=== PATIENT | male | born 1935 | race Caucasian/White ===

== ENCOUNTER 2022-06-21 05:06 | Inpatient (IN) | payer MEDICARE ==
[~2022-06-21] VITALS: Ht 180.3 cm; Wt 70.8 kg
[~2022-06-21 05:06] MED LIST: ASPIRIN EC81 MG PO; ATORVASTATIN CA20 MG PO; GLUCOPHAGE1000 MG PO; GLUCOTROL 10 MG10 MG PO; HUMALOG 10100 UNITS/ SC; KEPPRA 100100 MG/1 M PO; LANTUS INS100 UTS/M1 SQ; LANTUS100 UNIT/1 SC; LANTUS100 UNIT/1 SQ; LOPRESSOR 25 MG25 MG PO; MAGOX 400400 MG PO; MIRALAX 119 GR119 GM PO; NEURONTIN 100100 MG PO; NORCO 7.5-3251 EACH PO; NOVOLOG100 UNIT/1 SC; PHENERGAN 12.12.5 M1 PO; PLAVIX 75 MG TA75 MG PO; PROTONIX40 M1 PO; XARELTO10 MG PO; XARELTO15 PACK PO
[2022-06-21 05:45] LABS: RED BLOOD COUNT 2.15 M/UL (4.20-5.50); WHITE BLOOD COUNT 4.7 K/UL (4.5-11.0)
[2022-06-21 05:49] LABS: HEMOGLOBIN 6.5 gm/dl (14.0-17.5)
[2022-06-21 06:21] LABS: BUN/CREATININE RATIO 36 (0-10)
[2022-06-21] MEDS ORDERED: ELIQUIS5 MG PO (09:29)
[2022-06-21] MEDS ORDERED: ASPIRIN EC81 MG PO (09:29)
[2022-06-21] MEDS ORDERED: CLEOCIN HCL300 MG PO (09:29)
[2022-06-21] MEDS ORDERED: AMOX TR-K CLV1 EAC4 PO (09:30)
[2022-06-21] MEDS ORDERED: LEVEMIR FL100 UNIT/1 SQ (09:31)
[2022-06-21] MEDS ORDERED: NOVOLOG100 UNIT/2 SQ (09:31)
[2022-06-21 12:26] LABS: BUN/CREATININE RATIO 40 (0-10)
[2022-06-21 14:57] LABS: BUN/CREATININE RATIO 40 (0-10)
[2022-06-21 15:32] LABS: HEMOGLOBIN 8.8 gm/dl (14.0-17.5)
--- NOTE | 2022-06-21 23:30 | NUR ---
OGT HOOKED TO LWS WITH 500ML BLOODY DRAINAGE OBTAINED. IT WAS NOTED THAT ABDOMINAL PEG TUBE WAS PRESENT AND IN PLACE WITH AIR BOLUS AND BLOODY STOMACH CONTENTS PRESENT WITH ASPIRATION. OGT PULLED PER DR HAILY HAUSER.
[2022-06-22 02:31] LABS: HEMOGLOBIN 8.2 gm/dl (14.0-17.5)
[2022-06-22 05:27] LABS: HEMOGLOBIN 8.2 gm/dl (14.0-17.5)
[2022-06-22 05:37] LABS: RED BLOOD COUNT 2.71 M/UL (4.20-5.50); WHITE BLOOD COUNT 14.2 K/UL (4.5-11.0)
[2022-06-23 05:03] LABS: HEMOGLOBIN 7.2 gm/dl (14.0-17.5); WHITE BLOOD COUNT 14.1 K/UL (4.5-11.0)
[2022-06-23 05:04] LABS: RED BLOOD COUNT 2.39 M/UL (4.20-5.50)
--- NOTE | 2022-06-23 14:34 | NUR ---
[facility] CALLED ON 06/23/2022 @ [id number]. PT WAS DECLINED FOR DONOR SERVICES. CALL BACK WITH CARDIAC TIME OF .
[2022-06-24 04:16] LABS: HEMOGLOBIN 7.4 gm/dl (14.0-17.5); RED BLOOD COUNT 2.51 M/UL (4.20-5.50); WHITE BLOOD COUNT 10.4 K/UL (4.5-11.0)
--- NOTE | 2022-06-24 11:52 | NUR ---
06/24/22 0700 SPOKE TO HARMONY JURADO FROM [facility] WHO STATED THAT PATIENT IS RULED OUT FOR ORGAN DONATION. CALL BACK WITH CARDIAC TIME OF
[2022-06-24 12:14] LABS: ORGANISM ID Not indicated. (.); SPECIMEN SOURCE Urine (.); STREPTOCOCCUS PNEUMONIAE AG Negative (Negative)
== END 2022-06-24 23:30 | disposition expired | DRG 871 ==
LOC: ER1 05:06 → CCU 08:53 → CDU 08:53 → CCU 09:55
PROVIDERS: Internal Medicine; Internal Medicine Critical Care Medicine; Internal Medicine Nephrology; Physician Assistant Medical; Student in an Organized Health Care Education/Training Program; ADMIT Internal Medicine
PROC: 5A12012 Performance of Cardiac Output, Single, Manual (ICD-10-PCS; principal; 2022-06-21)
PROC: 3E033XZ Introduction of Vasopressor into Peripheral Vein, Percutaneous Approach (ICD-10-PCS; 2022-06-21)
PROC: 3E03329 Introduction of Other Anti-infective into Peripheral Vein, Percutaneous Approach (ICD-10-PCS; 2022-06-21)
PROC: 30233N1 Transfusion of Nonautologous Red Blood Cells into Peripheral Vein, Percutaneous Approach (ICD-10-PCS; 2022-06-21)
PROC: B24BZZZ Ultrasonography of Heart with Aorta (ICD-10-PCS; 2022-06-21)
PROC: 0BH17EZ Insertion of Endotracheal Airway into Trachea, Via Natural or Artificial Opening (ICD-10-PCS; 2022-06-21)
PROC: 5A1945Z Respiratory Ventilation, 24-96 Consecutive Hours (ICD-10-PCS; 2022-06-21)
PROC: 4A13XR1 Monitoring of Arterial Saturation, Peripheral, External Approach (ICD-10-PCS; 2022-06-21)
PROC: 4A00X4Z Measurement of Central Nervous Electrical Activity, External Approach (ICD-10-PCS; 2022-06-24)
DX: A41.9 Sepsis, unspecified organism (principal); G93.6 Cerebral edema; J69.0 Pneumonitis due to inhalation of food and vomit; Z51.5 Encounter for palliative care; Z66 Do not resuscitate; Z20.822 Contact with and (suspected) exposure to COVID-19; J96.01 Acute respiratory failure with hypoxia; J96.02 Acute respiratory failure with hypercapnia; N17.0 Acute kidney failure with tubular necrosis; I49.01 Ventricular fibrillation; R57.0 Cardiogenic shock; G93.1 Anoxic brain damage, not elsewhere classified; J90 Pleural effusion, not elsewhere classified; E87.1 Hypo-osmolality and hyponatremia; K92.2 Gastrointestinal hemorrhage, unspecified; G93.40 Encephalopathy, unspecified; I31.3 Pericardial effusion (noninflammatory); M96.89 Other intraoperative and postprocedural complications and disorders of the musculoskeletal system; I62.9 Nontraumatic intracranial hemorrhage, unspecified; R65.20 Severe sepsis without septic shock; R74.01 Elevation of levels of liver transaminase levels; I10 Essential (primary) hypertension; E78.5 Hyperlipidemia, unspecified; K59.00 Constipation, unspecified; D64.9 Anemia, unspecified; L89.151 Pressure ulcer of sacral region, stage 1; E87.5 Hyperkalemia; E11.65 Type 2 diabetes mellitus with hyperglycemia; Y84.8 Other medical procedures as the cause of abnormal reaction of the patient, or of later complication, without mention of misadventure at the time of the procedure; I08.3 Combined rheumatic disorders of mitral, aortic and tricuspid valves; Z99.81 Dependence on supplemental oxygen; Z85.89 Personal history of malignant neoplasm of other organs and systems; Z79.4 Long term (current) use of insulin; Z82.49 Family history of ischemic heart disease and other diseases of the circulatory system; Z83.3 Family history of diabetes mellitus; Z89.432 Acquired absence of left foot; Z93.1 Gastrostomy status; Z88.0 Allergy status to penicillin; Z88.8 Allergy status to other drugs, medicaments and biological substances; Z80.9 Family history of malignant neoplasm, unspecified
CPT/HCPCS: ECHO; 0241U; 31500; 36415; 36430; 36556; 36600; 70450; 71045; 80048; 80053; 80202; 81001; 82009; 82436; 82533; 82550; 82553; 82803; 82962; 83036; 83540; 83550; 83605; 83735; 83880; 83935; 84100; 84133; 84300; 84443; 84484; 85014; 85018; 85025; 85027; 85379; 85384; 85610; 85652; 85730; 86140; 86850; 86900; 86901; 86920; 87040; 87070; 87081; 87086; 87205; 87278; 87899; 92950; 93005; 93306; 94002; 94003; 94640; 94664; 94760; 96365; 96366; 96375; 99285; A6212; C1894; C9113; J0171; J0282; J0461; J0692; J1940; J3370; J7030; J7040; J7070; J7131; P9016; P9047; Q9967